=== PATIENT | male | born 1995 | race Caucasian/White ===

== ENCOUNTER 2017-10-29 12:52 | Emergency (ER) | payer BC ==
[2017-10-29 12:58] VITALS: BP 122/61
[2017-10-29] MEDS ORDERED: MUPIROCIN 2% OINTMENT 22 GM TP ONE (13:17)
--- NOTE | 2017-10-29 13:21 | ER Document Report ---
ED General - General Chief Complaint: Skin Problem Stated Complaint: ABSCESS/LEFT FOREARM Time Seen by Provider: 10/29/17 13:17 TRAVEL OUTSIDE OF THE [place] IN LAST 30 DAYS: No - HPI Patient complains to provider of: Left forearm cellulitis Notes: Patient coming in for evaluation left forearm redness. 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 Patient denies any fever chills nausea vomiting diarrhea denies any injury to the arm patient states he has been trying to scrub at home he was instructed that the last abscess he had. - Related Data Allergies/Adverse Reactions: No Known Allergies Allergy (Verified 10/29/17 12:55) Past Medical History - Social History Smoking Status: Unknown if Ever Smoked Family History: Reviewed & Not Pertinent Review of Systems - Review of Systems Constitutional: No symptoms reported EENT: No symptoms reported Cardiovascular: No symptoms reported Respiratory: No symptoms reported Gastrointestinal: No symptoms reported Genitourinary: No symptoms reported Male Genitourinary: No symptoms reported Musculoskeletal: No symptoms reported Skin: Other - Cellulitis Hematologic/Lymphatic: No symptoms reported Neurological/Psychological: No symptoms reported Physical Exam - Vital signs Vitals: Temp Pulse Resp BP Pulse Ox 98.3 F 79 16 122/61 100 10/29/17 12:57 10/29/17 12:57 10/29/17 12:57 10/29/17 12:57 10/29/17 12:57 Interpretation: Normal - General General appearance: Appears well, Alert - HEENT Head: Normocephalic, Atraumatic Eyes: Normal Pupils: PERRL - Back Back: Normal, Nontender - Extremities General upper extremity: Nontender, Normal color, Normal ROM, Normal temperature. No: Normal inspection - Small area approximately 2 cm x 2 cm the left forearm with induration and center no fluctuance. Bedside ultrasound was performed with no signs of abscess formation. General lower extremity: Normal inspection, Nontender, Normal color, Normal ROM , Normal temperature, Normal weight bearing. No: Jessenia's sign - Neurological Neuro grossly intact: Yes Cognition: Normal Orientation: AAOx4 [place] Coma Scale Eye Opening: Spontaneous [place] Coma Scale Verbal: Oriented [place] Coma Scale Motor: Obeys Commands [place] Coma Scale Total: 15 Speech: Normal Motor strength normal: LUE, RUE, LLE, RLE Sensory: Normal - Psychological Associated symptoms: Normal affect, Normal mood - Skin Skin Temperature: Warm Skin Moisture: Dry Skin Color: Normal Course - Re-evaluation Re-evalutation: 10/29/17 14:18 Patient coming in for evaluation of surrounding cellulitis. Will start patient on Bactroban. If the erythema continues to spread patient was instructed to take Bactrim prescribed. - Vital Signs Vital signs: Temp Pulse Resp BP Pulse Ox 98.3 F 79 16 122/61 100 10/29/17 12:57 10/29/17 12:57 10/29/17 12:57 10/29/17 12:57 10/29/17 12:57 Discharge - Discharge Clinical Impression: Cellulitis Qualifiers: Site of cellulitis: extremity Site of cellulitis of extremity: upper extremity Laterality: left Qualified Code(s): L03.114 - Cellulitis of left upper limb Condition: Good Disposition: HOME, SELF-CARE Instructions: Cellulitis ([facility]) Additional Instructions: Your examination is consistent with a small area of skin infection. The Bactroban cream to be gave you here in ER is specifically made to treat infections caused by MRSA also covers of the bacteria is. If the redness continues to spread to the outlying marking to be performed here in the ER please stop the cream and start the p.o. pills. Continue to wash the area and soak the area Prescriptions: Sulfamethoxazole/Trimethoprim [Bactrim Ds Tablet] 1 each PO BID #20 tablet Forms: Return to Work
== END 2017-10-29 13:45 | disposition home or self-care (01) ==
LOC: ER 12:52
DX: L03.114 Cellulitis of left upper limb (principal); Z86.14 Personal history of Methicillin resistant Staphylococcus aureus infection
CPT/HCPCS: 99283; J3490